=== PATIENT | female | born 2000 | race Two or more races ===

== ENCOUNTER 2024-03-09 13:28 | Emergency (ER) | payer OTHER ==
[~2024-03-09] VITALS: Ht 175.3 cm; Wt 72.6 kg
[2024-03-09] MEDS ORDERED: ONDANSETRON HCL/PF 4 MG/2 ML VIAL ONE (14:06)
[2024-03-09] MEDS ORDERED: MORPHINE SULFATE INJ 4 MG/ML DISP.SYRIN ONE (14:07)
[2024-03-09] MEDS ORDERED: MORPHINE SULFATE INJ 2 MG/ML DISP.SYRIN ONE (14:12)
[2024-03-09] MEDS: IV NS 0.9% 1,000 ML BAG IV ONE (14:25)
[2024-03-09] MEDS: ONDANSETRON HCL/PF 4 MG/2 ML VIAL IVP ONE (14:26)
[2024-03-09] MEDS: MORPHINE SULFATE INJ 2 MG/ML DISP.SYRIN IV ONE (14:27)
[2024-03-09 15:20] LABS: PREGNANCY TEST URINE QUAL NEGATIVE (NEGATIVE)
[2024-03-09] MEDS ORDERED: CYCL5TAB PO (15:45)
[2024-03-09] MEDS ORDERED: IBUP-1957 PO (15:45)
[2024-03-09 16:17] VITALS: BP 109/69; TEMP 98.3; O2SAT 98
== END 2024-03-09 16:18 | disposition home or self-care (01) ==
LOC: ER 13:34
DX: M54.59 Other low back pain (principal); M25.552 Pain in left hip; V43.52XA Car driver injured in collision with other type car in traffic accident, initial encounter; Y93.89 Activity, other specified; Y92.488 Other paved roadways as the place of occurrence of the external cause; Y99.8 Other external cause status
CPT/HCPCS: 99285; 96374; 72131; 96361; 96375; 73503; 84703; J2405; J7030; J2270; 73502